=== PATIENT | male | born 1965 | race Caucasian/White ===

== ENCOUNTER 2020-06-18 09:04 | Emergency (ER) | payer OTHER ==
[~2020-06-18] VITALS: Ht 172.7 cm; Wt 83.0 kg
[2020-06-18 09:13] VITALS: BP 137/85
== END 2020-06-18 10:21 | disposition home or self-care (01) ==
LOC: ED 10:00
DX: H66.001 Acute suppurative otitis media without spontaneous rupture of ear drum, right ear (principal)
CPT/HCPCS: 99283